=== PATIENT | male | born 1985 | race Hispanic/Latino ===

== ENCOUNTER 2024-04-01 07:34 | Outpatient (CLI) | payer BC ==
[2024-04-01] MEDS ORDERED: Iopamidol 370 76% 100 ML VIAL ONE (10:43)
== END 2024-04-01 07:35 | disposition home or self-care (01) ==
LOC: CT 07:34
PROVIDERS: ATTEND Family Medicine
DX: R10.84 Generalized abdominal pain (principal); R14.0 Abdominal distension (gaseous); R68.81 Early satiety
CPT/HCPCS: 74178; Q9967